=== PATIENT | female | born 1970 | race Caucasian/White ===

== ENCOUNTER 2016-06-10 12:15 | Emergency (ER) | payer SELFPAY ==
[2012-11-13 08:37] VITALS: BMI 33.3
[2016-06-10 13:27] LABS: BASOPHILS 0.8 % (0.0-2.0); EOSINOPHILS 3.8 % (0-7); HEMATOCRIT 38.8 % (36.0-48.0); HEMOGLOBIN 12.9 g/dL (12-16); LYMPHOCYTES 30.4 % (15-50); MCH 30.7 pg (26.0-34.0); MCHC 33.2 g/dL (31.0-37.0); MCV 92.4 fL (80.0-100.0); MEAN PLATELET VOLUME 10.8 fL (7.4-10.4); MONOCYTES 9.1 % (2-11); NEUTROPHILS 55.9 % (40-80); PLATELET COUNT 206 10x3/uL (130-400); RDW 13.5 % (11.5-14.5); WBC 5.3 10x3/uL (4.8-10.8)
== END 2016-06-10 17:01 | disposition home or self-care (01) ==
LOC: D.ER 12:15
PROVIDERS: Emergency Medicine
DX: S16.1XXA Strain of muscle, fascia and tendon at neck level, initial encounter (principal); V43.52XA Car driver injured in collision with other type car in traffic accident, initial encounter; Y93.89 Activity, other specified; Y92.410 Unspecified street and highway as the place of occurrence of the external cause; S29.012A Strain of muscle and tendon of back wall of thorax, initial encounter; S39.012A Strain of muscle, fascia and tendon of lower back, initial encounter; M62.838 Other muscle spasm; C73 Malignant neoplasm of thyroid gland